=== PATIENT | male | born 1965 | race Two or more races ===

== ENCOUNTER 2017-01-14 01:13 | Emergency (ER) | payer SELFPAY ==
[~2017-01-14] VITALS: Ht 182.9 cm; Wt 79.4 kg
[2017-01-14 01:58] VITALS: BP 139/99
[2017-01-14] MEDS ORDERED: NAPROXEN 250 MG TABLET ONE (04:41)
[2017-01-14] MEDS ORDERED: NAPROXEN 250 MG TABLET PO ONE (05:00)
== END 2017-01-14 04:48 | disposition home or self-care (01) ==
LOC: ER 01:13
DX: M25.511 Pain in right shoulder (principal)
CPT/HCPCS: 99282; A4606; Z7610

== ENCOUNTER 2017-08-25 23:55 | Emergency (ER) | payer SELFPAY ==
[~2017-08-25] VITALS: Ht 182.9 cm; Wt 81.6 kg
[2017-08-26 00:21] VITALS: BP 147/88
[2017-08-26 01:35] LABS: APPEARANCE,URINE CLEAR (CLEAR); BILIRUBIN,URINE NEGATIVE (NEGATIVE); BLOOD, URINE NEGATIVE Ery/uL (NEGATIVE); COLOR,URINE YELLOW (YELLOW); KETONES,URINE NEGATIVE (NEGATIVE); LEUKOCYTE ESTERASE ,URINE NEGATIVE (NEGATIVE); NITRITE, URINE NEGATIVE (NEGATIVE); PH,URINE 6.5 (5.0-8.0); PROTEIN,URINE NEGATIVE (NEGATIVE); UGLUCOSE NEGATIVE (NEGATIVE); UROBILINOGEN,URINE 0.2 EU/dL (0.2)
== END 2017-08-26 02:34 | disposition home or self-care (01) ==
LOC: ER 23:59
DX: S39.011A Strain of muscle, fascia and tendon of abdomen, initial encounter (principal); X58.XXXA Exposure to other specified factors, initial encounter; Y93.89 Activity, other specified; Y92.89 Other specified places as the place of occurrence of the external cause; Y99.8 Other external cause status
CPT/HCPCS: 81001; 93005; 99285; A4606; Z7610; 81000-TC

== ENCOUNTER 2017-08-31 23:25 | Emergency (ER) | payer SELFPAY ==
[~2017-08-31] VITALS: Ht 182.9 cm; Wt 81.6 kg
--- NOTE | 2017-09-01 00:13 | NUR ---
[employer]KER AT BEDSIDE
--- NOTE | 2017-09-01 00:15 | NUR ---
PT BIB SELF FROM HOME C/O CHEST PAIN/COUGH X4 DAYS. NO SOB BUT WHEEZING BLL HEARD. NO PAIN. VSS NAD. WILL CONTINUE TO MONITOR FOR ANY CHANGES
[2017-09-01] MEDS ORDERED: ALBUTEROL FS 2.5 MG/3 ML VIAL.NEB ONE (00:42)
[2017-09-01] MEDS ORDERED: IPRATROPIUM NEB FS 0.5 MG/2.5 ML AMPUL.NEB ONE (00:42)
[2017-09-01] MEDS: IPRATROPIUM NEB FS 0.5 MG/2.5 ML AMPUL.NEB NEB ONE (00:48)
[2017-09-01] MEDS: ALBUTEROL FS 2.5 MG/3 ML VIAL.NEB NEB ONE (00:48)
--- NOTE | 2017-09-01 01:04 | NUR ---
D/C INSTRUCTIONS GIVEN TO PT. AWAITING FINISH OF ALBUTEROL TX
[2017-09-01 02:24] VITALS: BP 141/85
== END 2017-09-01 02:26 | disposition home or self-care (01) ==
LOC: ER 23:28
DX: J20.9 Acute bronchitis, unspecified (principal)
CPT/HCPCS: 71045; 94640 ×2; 99283; A4606; Z7610

== ENCOUNTER 2017-11-29 22:05 | Emergency (ER) | payer SELFPAY ==
[~2017-11-29] VITALS: Ht 182.9 cm; Wt 81.6 kg
--- NOTE | 2017-11-29 22:05 | NUR ---
BB SELF; LEFT SIDED CHEST PAIN S/P FALL WED. VSS NAD. NO SOB NOTED. A/OX4 ABLE TO MAKE NEEDS KNOWN. WILL CONTINUE TO MONITOR FOR ANY CHANGES DURNIG THE SHIFT
[2017-11-29] MEDS ORDERED: ASPIRIN 81 MG TAB.CHEW ONE (22:47)
--- NOTE | 2017-11-29 22:56 | NUR ---
EKG IN PROGRESS
--- NOTE | 2017-11-29 22:56 | NUR ---
RAC #[id number] IV ACCESS. BLOOD SAMPLE COLLECTED SENT TO LAB
[2017-11-29 22:59] LABS: BASOPHILS # (AUTO) 0.1 /CMM (0.0-0.2); EOSINOPHILS % (AUTO) 3.6 % (0.0-6.0); HEMATOCRIT 40 % (39-51); HEMOGLOBIN 13.4 g/dL (13.5-17.5); LYMPHOCYTES # (AUTO) 2.1 /CMM (0.8-4.8); LYMPHOCYTES % (AUTO) 37.5 % (20.0-44.0); MEAN CORPUSCULAR HGB CONC 33 g/dl (31.0-36.0); MEAN CORPUSCULAR VOLUME 84 fL (80-96); MONOCYTES # (AUTO) 0.7 /CMM (0.1-1.30); NEUTROPHILS # (AUTO) 2.5 /CMM (1.8-8.9); NEUTROPHILS % (AUTO) 45.9 % (43.0-81.0); PLATELET COUNT (AUTO) 313 /CMM (150-450); RDW COEFFICIENT OF VARIATION 14.4 (11.5-15.0); RED BLOOD CELL COUNT(AUTO) 4.83 MIL/uL (4.5-6.0); WHITE BLOOD COUNT (AUTO) 5.6 K/uL (4.3-11.0)
[2017-11-29] MEDS ORDERED: ASPIRIN 81 MG TAB.CHEW PO ONE (23:00)
[2017-11-29 23:10] LABS: CALCIUM, SERUM 8.5 mg/dL (8.5-10.1); CARBON DIOXIDE 30 mmol/L (21-32); CHLORIDE 104 mmol/L (98-107); CREATININE 0.9 mg/dL (0.6-1.3); GLUCOSE 104 mg/dL (74-106); SODIUM SERUM 142 mmol/L (136-145); UREA NITROGEN, BLOOD 17 mg/dL (7-18)
[2017-11-29 23:13] LABS: INR 1.02 (0.87-1.13)
[2017-11-29 23:17] LABS: TROPONIN I < 0.017 ng/mL (0.00-0.056)
[2017-11-29 23:22] LABS: ALANINE AMINOTRANSFERASE 35 U/L (12-78); ALBUMIN 3.3 g/dL (3.4-5.0); ALKALINE PHOSPHATASE 86 U/L (46-116); ASPARTATE AMINOTRANSFERASE 17 U/L (15-37); B-TYPE NATRIURETIC PEPTIDE 24 PG/ML (0-125); BILIRUBIN,DIRECT 0.1 mg/dL (0.0-0.2); BILIRUBIN,TOTAL 0.2 mg/dL (0.2-1.0); TOTAL PROTEIN, SERUM 6.7 g/dL (6.4-8.2)
[2017-11-30 02:41] VITALS: BP 130/80
== END 2017-11-30 02:41 | disposition home or self-care (01) ==
LOC: ER 22:05
DX: S09.8XXA Other specified injuries of head, initial encounter (principal); R07.89 Other chest pain; F41.9 Anxiety disorder, unspecified; Z60.2 Problems related to living alone; W18.39XA Other fall on same level, initial encounter; Y93.E1 Activity, personal bathing and showering; Y92.89 Other specified places as the place of occurrence of the external cause; Y99.8 Other external cause status
CPT/HCPCS: 36415; 70450-TC; 71045-TC; 80048-TC; 80076-TC; 83880; 84484-TC; 85025-TC; 85730-TC; A4606; Z7610

== ENCOUNTER 2018-11-07 23:48 | Emergency (ER) | payer SELFPAY ==
[~2018-11-07] VITALS: Ht 182.9 cm; Wt 83.9 kg
[2018-11-08 00:25] VITALS: BP 121/79
[2018-11-08] MEDS ORDERED: IBUPROFEN 600 MG TABLET PO ONE ×2 (02:25→02:30)
== END 2018-11-08 02:36 | disposition home or self-care (01) ==
LOC: ER 23:53
DX: S86.811A Strain of other muscle(s) and tendon(s) at lower leg level, right leg, initial encounter (principal); S39.012A Strain of muscle, fascia and tendon of lower back, initial encounter; F41.9 Anxiety disorder, unspecified; Z98.890 Other specified postprocedural states; Z60.2 Problems related to living alone; X50.1XXA Overexertion from prolonged static or awkward postures, initial encounter; Y93.89 Activity, other specified; Y92.89 Other specified places as the place of occurrence of the external cause; Y99.8 Other external cause status
CPT/HCPCS: 99282; A4606

== ENCOUNTER 2019-07-06 21:14 | Emergency (ER) | payer SELFPAY ==
[~2019-07-06] VITALS: Ht 182.9 cm; Wt 81.6 kg
--- NOTE | 2019-07-06 22:05 | NUR ---
bibs for c/o back pain s/p fall 2 wks ago at the gym. pt also reported occasional h/a and dizziness since then. -n/v. - blurry vision
--- NOTE | 2019-07-06 23:50 | NUR ---
Patient discharged to home in stable condition. Rx and Written and verbal after care instructions given. Patient verbalizes understanding of instruction.
[2019-07-07 00:03] VITALS: BP 119/75
== END 2019-07-06 23:45 | disposition home or self-care (01) ==
LOC: ER 21:16
DX: S39.012A Strain of muscle, fascia and tendon of lower back, initial encounter (principal); S09.8XXA Other specified injuries of head, initial encounter; F41.9 Anxiety disorder, unspecified; Z98.890 Other specified postprocedural states; Z60.2 Problems related to living alone; W01.0XXA Fall on same level from slipping, tripping and stumbling without subsequent striking against object, initial encounter; Y93.89 Activity, other specified; Y92.39 Other specified sports and athletic area as the place of occurrence of the external cause; Y99.8 Other external cause status
CPT/HCPCS: 70450-TC; 72080-TC

== ENCOUNTER 2020-02-09 23:33 | Emergency (ER) | payer SELFPAY ==
[~2020-02-09] VITALS: Ht 182.9 cm; Wt 81.6 kg
[2020-02-09 23:56] LABS: BASOPHILS # (AUTO) 0.1 /CMM (0.0-0.2); BASOPHILS % (AUTO) 1.3 % (0.0-2.0); HEMATOCRIT 41 % (39-51); HEMOGLOBIN 13.5 g/dL (13.5-17.5); LYMPHOCYTES # (AUTO) 1.7 /CMM (0.8-4.8); LYMPHOCYTES % (AUTO) 34.3 % (20.0-44.0); MEAN CORPUSCULAR HGB CONC 33 g/dl (31.0-36.0); MEAN CORPUSCULAR VOLUME 87 fL (80-96); MONOCYTES # (AUTO) 0.6 /CMM (0.1-1.30); NEUTROPHILS # (AUTO) 2.5 /CMM (1.8-8.9); NEUTROPHILS % (AUTO) 49.4 % (43.0-81.0); PLATELET COUNT (AUTO) 332 /CMM (150-450); RED BLOOD CELL COUNT(AUTO) 4.76 MIL/uL (4.5-6.0)
--- NOTE | 2020-02-10 00:01 | NUR ---
PATIENT CAME TO ER BED 10 C/O MIDSTERNAL CHEST PAIN SINCE 5xDAYS AGO. PATIENT STATES, "I AM UNSURE IF IT IS MY CHEST OR MY BACK THAT HURTS". PATIENT STATES THAT IT HURTS MIDSTERNALLY. AAOX4. NO SOB. BREATHING EVENLY AND UNLABORED ON ROOM AIR. CONNECTED TO THE INSECT CONTROL INSPECTOR.
[2020-02-10 00:06] LABS: CALCIUM, SERUM 8.7 mg/dL (8.5-10.1); CARBON DIOXIDE 32 mmol/L (21-32); CHLORIDE 107 mmol/L (98-107); CREATININE 1.4 mg/dL (0.6-1.3); GLUCOSE 79 mg/dL (74-106); SODIUM SERUM 142 mmol/L (136-145); UREA NITROGEN, BLOOD 22 mg/dL (7-18)
[2020-02-10 00:11] LABS: ALANINE AMINOTRANSFERASE 40 U/L (12-78); ALBUMIN 3.4 g/dL (3.4-5.0); ALKALINE PHOSPHATASE 112 U/L (46-116); ASPARTATE AMINOTRANSFERASE 22 U/L (15-37); BILIRUBIN,DIRECT 0.1 mg/dL (0.0-0.2); BILIRUBIN,TOTAL 0.2 mg/dL (0.2-1.0); TOTAL PROTEIN, SERUM 6.6 g/dL (6.4-8.2)
[2020-02-10 01:09] VITALS: BP 135/74
--- NOTE | 2020-02-10 01:09 | NUR ---
Patient discharged to home in stable condition. Written and verbal after care instructions given. Patient verbalizes understanding of instruction.
--- NOTE | 2020-02-10 01:09 | NUR ---
IV removed. Catheter intact and site benign. Pressure and 4x4 applied to site. No bleeding noted.
== END 2020-02-10 01:09 | disposition home or self-care (01) ==
LOC: ER 23:33
DX: S91.132A Puncture wound without foreign body of left great toe without damage to nail, initial encounter (principal); R07.89 Other chest pain; Z98.890 Other specified postprocedural states; Z60.2 Problems related to living alone; X58.XXXA Exposure to other specified factors, initial encounter; Y93.89 Activity, other specified; Y92.89 Other specified places as the place of occurrence of the external cause; Y99.8 Other external cause status
CPT/HCPCS: 36415; 71045-TC; 73630-TC; 80048-TC; 80076-TC; 84484-TC; 85025-TC; 85378-TC

== ENCOUNTER 2020-02-29 22:54 | Emergency (ER) | payer SELFPAY ==
[~2020-02-29] VITALS: Ht 182.9 cm; Wt 81.6 kg
[2020-02-29 23:15] VITALS: BP 142/75
== END 2020-02-29 23:40 | disposition home or self-care (01) ==
LOC: ER 23:00
DX: M54.30 Sciatica, unspecified side (principal); G89.29 Other chronic pain; Z60.2 Problems related to living alone; Z79.899 Other long term (current) drug therapy

== ENCOUNTER 2020-11-28 07:28 | Emergency (ER) | payer MEDICAID ==
[~2020-11-28] VITALS: Ht 185.4 cm; Wt 77.1 kg
[2020-11-28 07:45] VITALS: BP 145/81
[2020-11-28] MEDS ORDERED: TDAP [DIPH/PERTUSSIS/TET] 0.5 ML VIAL IM ONE ×2 (08:00→08:07)
[2020-11-28] MEDS ORDERED: BACI/NEOM/POLY B OINT PKT 1 UDPKT PACKET TP ONE (08:00)
[2020-11-28] MEDS ORDERED: ACETAMINOPHEN ES 500 MG TABLET PO ONE (08:00)
[2020-11-28] MEDS ORDERED: CEPHALEXIN MONOHYDRATE 500 MG CAPSULE PO ONE ×2 (08:00→08:09)
[2020-11-28] MEDS ORDERED: CEPH500C2 PO (08:06)
[2020-11-28] MEDS ORDERED: NEOM28.37 TP (08:06)
[2020-11-28] MEDS ORDERED: BACI/NEOM/POLY B OINT PKT 1 UDPKT PACKET ONE (08:08)
[2020-11-28] MEDS ORDERED: ACETAMINOPHEN ES 500 MG TABLET ONE (08:08)
== END 2020-11-28 09:01 | disposition home or self-care (01) ==
LOC: ER 07:28
DX: T24.202A Burn of second degree of unspecified site of left lower limb, except ankle and foot, initial encounter (principal); F41.9 Anxiety disorder, unspecified; Z98.890 Other specified postprocedural states; Z60.2 Problems related to living alone; X16.XXXA Contact with hot heating appliances, radiators and pipes, initial encounter; Y93.89 Activity, other specified; Y92.89 Other specified places as the place of occurrence of the external cause; Y99.8 Other external cause status
CPT/HCPCS: 90715

== ENCOUNTER → 2021-02-28 | Emergency (ER) | payer SELFPAY ==
[~2021-02-28] VITALS: Ht 182.9 cm; Wt 81.6 kg
[~2021-02-28] MED LIST: CEPH500C2 PO; NEOM28.37 TP; PRED50TA PO
--- NOTE | 2021-02-28 19:44 | NUR ---
PT BIB SELF C/O L SHOULDER PAIN X 2 DAYS, S/P POTENTIAL FALL. AO X 4, BREATHING EVEN AND UNLABORED. NO SWELLING NOTED. PT DENIES TAKING PAIN MEDS. MD AT BEDSIDE FOR EVAL. ATTACHED TO MONITOR AND PULSE OX. CALL LIGHT WITHIN REACH.
--- NOTE | 2021-02-28 19:51 | NUR ---
RADIOLOGY AT BEDSIDE FOR XRAY
--- NOTE | 2021-02-28 20:50 | NUR ---
Patient discharged to home in stable condition. Written and verbal after care instructions given. Patient verbalizes understanding of instruction. Pt ambulatory with a steady gait.
[2021-02-28 21:13] VITALS: BP 150/90
== END | disposition home or self-care (01) ==
LOC: ER 19:43
DX: M75.42 Impingement syndrome of left shoulder (principal); F41.9 Anxiety disorder, unspecified; Z98.890 Other specified postprocedural states; Z60.2 Problems related to living alone; Z79.899 Other long term (current) drug therapy; W19.XXXA Unspecified fall, initial encounter; Y93.89 Activity, other specified; Y92.89 Other specified places as the place of occurrence of the external cause; Y99.8 Other external cause status
CPT/HCPCS: 71045-TC; 73030-TC

== ENCOUNTER 2021-05-04 01:05 | Emergency (ER) | payer SELFPAY ==
[~2021-05-04] VITALS: Ht 182.9 cm; Wt 81.6 kg
--- NOTE | 2021-05-04 01:20 | NUR ---
LAB AT BEDSIDE, BLOOD DRAWN
--- NOTE | 2021-05-04 01:20 | NUR ---
PATIENT BIBS C/O TAKING VIAGRA AND HAVING "CHEST PRESSURE" FOR 3 DAYS. ON ASSESSMENT, PATIENT IS AO X4, BREATHING EVEN AND UNLABORED, DENIES N/V, STATES HE FEELS A TICKLING SENSATION ON HIS CHEST, WHICH COMES AND GOES. PATIENT WAS SEEN AND EXAMINED BY DR DUBOIS. PATIENT ATTACHED TO MONITOR AND PULSE OX. WILL CONTINUE TO MONITOR AND CARRY OUT MD ORDERS.
[2021-05-04 01:39] LABS: BASOPHILS # (AUTO) 0.1 K/uL (0.0-0.2); EOSINOPHILS % (AUTO) 4.9 % (0.0-6.0); HEMATOCRIT 42 % (39-51); HEMOGLOBIN 13.6 g/dL (13.5-17.5); LYMPHOCYTES # (AUTO) 1.9 K/uL (0.8-4.8); LYMPHOCYTES % (AUTO) 36.8 % (20.0-44.0); MEAN CORPUSCULAR HGB CONC 32 g/dl (31.0-36.0); MEAN CORPUSCULAR VOLUME 86 fL (80-96); MONOCYTES # (AUTO) 0.6 K/uL (0.1-1.30); MONOCYTES % (AUTO) 12.1 % (2.0-12.0); NEUTROPHILS # (AUTO) 2.3 K/uL (1.8-8.9); NEUTROPHILS % (AUTO) 45.2 % (43.0-81.0); PLATELET COUNT (AUTO) 355 K/uL (150-450); RED BLOOD CELL COUNT(AUTO) 4.91 MIL/uL (4.5-6.0); WHITE BLOOD COUNT (AUTO) 5.1 K/uL (4.3-11.0)
--- NOTE | 2021-05-04 01:40 | NUR ---
URINE COLLECTED AND SENT TO LAB
[2021-05-04 01:45] LABS: CALCIUM, SERUM 8.2 mg/dL (8.5-10.1); CARBON DIOXIDE 25 mmol/L (21-32); CHLORIDE 108 mmol/L (98-107); CREATININE 0.8 mg/dL (0.6-1.3); GLUCOSE 117 mg/dL (74-106); POTASSIUM 3.7 mmol/L (3.5-5.1); SODIUM SERUM 143 mmol/L (136-145); UREA NITROGEN, BLOOD 24 mg/dL (7-18)
[2021-05-04 01:56] LABS: ALANINE AMINOTRANSFERASE 18 U/L (12-78); ALBUMIN 3.2 g/dL (3.4-5.0); ALKALINE PHOSPHATASE 101 U/L (46-116); ASPARTATE AMINOTRANSFERASE 15 U/L (15-37); BILIRUBIN,DIRECT 0.1 mg/dL (0.0-0.2); BILIRUBIN,TOTAL 0.2 mg/dL (0.2-1.0); TOTAL PROTEIN, SERUM 6.6 g/dL (6.4-8.2)
--- NOTE | 2021-05-04 02:27 | NUR ---
Patient discharged to home in stable condition. Written and verbal after care instructions given. Patient verbalizes understanding of instruction. Patient ambulatory with a steady gait.
[2021-05-04 02:32] VITALS: BP 123/71
== END 2021-05-04 02:25 | disposition home or self-care (01) ==
LOC: ER 01:08
DX: R07.89 Other chest pain (principal); F15.10 Other stimulant abuse, uncomplicated; F41.9 Anxiety disorder, unspecified; Z98.890 Other specified postprocedural states; Z60.2 Problems related to living alone; Z79.899 Other long term (current) drug therapy
CPT/HCPCS: 36415; 71045-TC; 80048-TC; 80076-TC; 84484-TC; 85025-TC; 85730-TC

== ENCOUNTER 2021-08-29 00:42 | Emergency (ER) | payer SELFPAY ==
[~2021-08-29] VITALS: Ht 177.8 cm; Wt 77.1 kg
--- NOTE | 2021-08-29 03:50 | NUR ---
BIBSELF C/O HEADACHE WITH LEFT SHOULDER PAIN PT SAYS HE FELL ON THE [place] 3 DAYS AGO. NO SOB NOTED, V/S CHECKED AND RECORDED, HOOKED TO MONITOR AND SPOX WILL CONT TO MONITOR
[2021-08-29] MEDS ORDERED: ACETAMINOPHEN ES 500 MG TABLET ONE (04:45)
[2021-08-29] MEDS: ACETAMINOPHEN ES 500 MG TABLET PO ONE (04:48)
[2021-08-29 04:58] LABS: BASOPHILS % (AUTO) 0.7 % (0.0-2.0); EOSINOPHILS % (AUTO) 3.2 % (0.0-6.0); HEMATOCRIT 46 % (39-51); LYMPHOCYTES # (AUTO) 1.9 K/uL (0.8-4.8); LYMPHOCYTES % (AUTO) 38.6 % (20.0-44.0); MEAN CORPUSCULAR HGB CONC 33 g/dl (31.0-36.0); MEAN CORPUSCULAR VOLUME 86 fL (80-96); MONOCYTES # (AUTO) 0.5 K/uL (0.1-1.30); MONOCYTES % (AUTO) 9.4 % (2.0-12.0); NEUTROPHILS # (AUTO) 2.4 K/uL (1.8-8.9); NEUTROPHILS % (AUTO) 48.1 % (43.0-81.0); PLATELET COUNT (AUTO) 333 K/uL (150-450)
[2021-08-29 05:10] LABS: CALCIUM, SERUM 8.6 mg/dL (8.5-10.1); CARBON DIOXIDE 28 mmol/L (21-32); CHLORIDE 102 mmol/L (98-107); GLUCOSE 100 mg/dL (74-106); POTASSIUM 3.9 mmol/L (3.5-5.1); SODIUM SERUM 137 mmol/L (136-145); UREA NITROGEN, BLOOD 18 mg/dL (7-18)
[2021-08-29 08:14] VITALS: BP 121/82
--- NOTE | 2021-08-29 08:14 | NUR ---
Patient discharged to home in stable condition. Written and verbal after care instructions given. Patient verbalizes understanding of instruction.
== END 2021-08-29 08:15 | disposition home or self-care (01) ==
LOC: ER 00:45
DX: S09.90XA Unspecified injury of head, initial encounter (principal); R07.89 Other chest pain; M25.512 Pain in left shoulder; W19.XXXA Unspecified fall, initial encounter; Y93.89 Activity, other specified; Y92.89 Other specified places as the place of occurrence of the external cause; Y99.8 Other external cause status
CPT/HCPCS: 36415; 70450-TC; 71045-TC; 80048-TC; 84484-TC; 85025-TC

== ENCOUNTER 2022-07-14 21:25 | Emergency (ER) | payer SELFPAY ==
[~2022-07-14] VITALS: Ht 182.9 cm; Wt 77.1 kg
--- NOTE | 2022-07-14 21:36 | NUR ---
BIBS FOR MID STERNAL CP AND L SIDED NUMBNESS X 3-4 DAYS. AMBULATORY, PLACED ON BED, ATTACHED TO MONITOR SHOWS NORMAL SINUS RHYTHM IN- 78, BREATHING EVEN AND UNLABORED SATURATING AT 99%RA, IN PAIN 4/10 PS
--- NOTE | 2022-07-14 22:00 | NUR ---
[employer] at bedside
[2022-07-14 22:19] LABS: BASOPHILS % (AUTO) 0.7 % (0.0-2.0); EOSINOPHILS % (AUTO) 3.7 % (0.0-6.0); HEMATOCRIT 42 % (39-51); HEMOGLOBIN 13.5 g/dL (13.5-17.5); LYMPHOCYTES # (AUTO) 1.9 K/uL (0.8-4.8); LYMPHOCYTES % (AUTO) 38.3 % (20.0-44.0); MEAN CORPUSCULAR HGB CONC 32 g/dl (31.0-36.0); MEAN CORPUSCULAR VOLUME 86 fL (80-96); MONOCYTES # (AUTO) 0.6 K/uL (0.1-1.30); MONOCYTES % (AUTO) 11.3 % (2.0-12.0); NEUTROPHILS # (AUTO) 2.3 K/uL (1.8-8.9); PLATELET COUNT (AUTO) 306 K/uL (150-450); RED BLOOD CELL COUNT(AUTO) 4.88 MIL/uL (4.5-6.0)
[2022-07-14 22:41] LABS: ALANINE AMINOTRANSFERASE 26 U/L (12-78); ALBUMIN 3.1 g/dL (3.4-5.0); ALKALINE PHOSPHATASE 113 U/L (46-116); ASPARTATE AMINOTRANSFERASE 14 U/L (15-37); BILIRUBIN,DIRECT 0.1 mg/dL (0.0-0.2); BILIRUBIN,TOTAL 0.2 mg/dL (0.2-1.0); CALCIUM, SERUM 7.9 mg/dL (8.5-10.1); CARBON DIOXIDE 33 mmol/L (21-32); CREATININE 1.1 mg/dL (0.6-1.3); GLUCOSE 117 mg/dL (74-106); TOTAL PROTEIN, SERUM 6.4 g/dL (6.4-8.2); UREA NITROGEN, BLOOD 26 mg/dL (7-18)
[2022-07-14 23:14] LABS: CHLORIDE 105 mmol/L (98-107); SODIUM SERUM 142 mmol/L (136-145)
--- NOTE | 2022-07-15 00:31 | NUR ---
Patient discharged to home in stable condition. Written and verbal after care instructions given. Patient verbalizes understanding of instruction. IV removed. Catheter intact and site benign. Pressure and 4x4 applied to site. No bleeding noted. pt ambulatory with a steady gait
[2022-07-15 01:32] VITALS: BP 138/84
== END 2022-07-15 01:33 | disposition home or self-care (01) ==
LOC: ER 21:27
DX: R07.89 Other chest pain (principal); F41.9 Anxiety disorder, unspecified; Z60.2 Problems related to living alone; Z79.899 Other long term (current) drug therapy
CPT/HCPCS: 36415; 71045-TC; 80048-TC; 80076-TC; 84484-TC; 85025-TC

== ENCOUNTER 2024-07-21 19:25 | Emergency (ER) | payer MEDICAID ==
[~2024-07-21] VITALS: Ht 180.3 cm; Wt 74.8 kg
[2024-07-21 20:12] LABS: BASOPHILS % (AUTO) 0.8 % (0.0-2.0); EOSINOPHILS # (AUTO) 0.2 K/uL (0.0-0.7); EOSINOPHILS % (AUTO) 3.2 % (0.0-6.0); HEMATOCRIT 40 % (39-51); LYMPHOCYTES # (AUTO) 1.4 K/uL (0.8-4.8); LYMPHOCYTES % (AUTO) 28.2 % (20.0-44.0); MEAN CORPUSCULAR HEMOGLOBIN 28 PG (26.0-33.0); MEAN CORPUSCULAR HGB CONC 32 g/dl (31.0-36.0); MEAN CORPUSCULAR VOLUME 86 fL (80-96); MONOCYTES # (AUTO) 0.7 K/uL (0.1-1.30); NEUTROPHILS # (AUTO) 2.8 K/uL (1.8-8.9); NEUTROPHILS % (AUTO) 54.8 % (43.0-81.0); PLATELET COUNT (AUTO) 347 K/uL (150-450); RED BLOOD CELL COUNT(AUTO) 4.66 MIL/uL (4.5-6.0); RED CELL DISTRIBUTION WIDTH 13.7 % (11.5-15.0); WHITE BLOOD COUNT (AUTO) 5.1 K/uL (4.3-11.0)
[2024-07-21 20:22] LABS: CALCIUM, SERUM 8.6 mg/dL (8.5-10.1); CARBON DIOXIDE 33 mmol/L (21-32); CHLORIDE 109 mmol/L (98-107); CREATININE 0.8 mg/dL (0.6-1.3); GLUCOSE 80 mg/dL (74-106); POTASSIUM 3.9 mmol/L (3.5-5.1); SODIUM SERUM 143 mmol/L (136-145); UREA NITROGEN, BLOOD 21 mg/dL (7-18)
[2024-07-21 21:05] VITALS: BP 128/76; TEMP 98; O2SAT 98
== END 2024-07-21 21:05 | disposition home or self-care (01) ==
LOC: ER 19:31
DX: R07.89 Other chest pain (principal); R06.02 Shortness of breath; F41.9 Anxiety disorder, unspecified; Z60.2 Problems related to living alone; Z79.52 Long term (current) use of systemic steroids
CPT/HCPCS: 36415; 71045-TC; 80048-TC; 84484-TC; 85025-TC